=== PATIENT | female | born 1980 | race Caucasian/White ===

== ENCOUNTER 2019-11-29 02:25 | Emergency (ER) | payer BC ==
[~2019-11-29] VITALS: Ht 152.4 cm; Wt 47.2 kg
[2019-11-29 02:25] VITALS: BP 143/94
--- NOTE | 2019-11-29 02:25 | NUR ---
JAYSON PT AMBULATED TO BED #6 FROM [facility]
--- NOTE | 2019-11-29 02:30 | NUR ---
PT SITTING QUIETLY IN BED. 1:[address] BEDRAILS UP. SAFETY MEASURES IN PLACE. WILL CONTINUE TO MONITOR.
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
--- NOTE | 2019-11-29 02:49 | NUR ---
Dr. Laura examining patient.
--- NOTE | 2019-11-29 02:59 | NUR ---
INITIATED TELEPSYCH PER DR. WU
[2019-11-29 03:12] LABS: APPEARANCE,URINE CLEAR (CLEAR); BILIRUBIN,URINE NEGATIVE (NEGATIVE); BLOOD, URINE TRACE-I (NEGATIVE); COLOR,URINE YELLOW (YELLOW); LEUKOCYTE ESTERASE ,URINE NEGATIVE (NEGATIVE); NITRITE, URINE NEGATIVE (NEGATIVE); UGLUCOSE NEGATIVE (NEGATIVE)
[2019-11-29 03:23] LABS: RBC,URINE 0-5 /HPF (0-5); WBC,URINE 0-5 /HPF (0-5)
[2019-11-29 03:24] LABS: BARBITURATE, URINE NEGATIVE ng/ml (NEG <=200); BENZODIAZEPINE, URINE POSITIVE ng/mL (NEG <=200); CANNABINOID, URINE NEGATIVE ng/mL (NEG <=50); COCAINE, URINE NEGATIVE ng/mL (NEG <=300); OPIATE, URINE NEGATIVE ng/mL (NEG <=2000); PHENCYCLIDINE SCREEN,URINE NEGATIVE ng/mL (NEG <=25)
--- NOTE | 2019-11-29 03:49 | NUR ---
TELEPSYCH DOCTOR SPEAKING WITH PATIENT VIA REMOTE COMMUNICATION
--- NOTE | 2019-11-29 03:57 | NUR ---
TELEPSYCH DOCTOR RECCOMMENDING TO UPHOLD 51/50 AND ONE TIME DOSE HYDROXYZINE 50 MG. JEREMIE WU MADE AWARE OF RECCOMENDATIONS.
[2019-11-29] MEDS ORDERED: HYDROXYZINE HYDROCHLORIDE 25 MG TAB PO STA (04:20)
--- NOTE | 2019-11-29 04:29 | NUR ---
PT REFUSED HYDROXYIZINE MEDICATION. STATES "I'M NOT MENTALLY ILL" AND "I ALMOST OVERDOSED ON DEPAKOTE TONIGHT, IM NOT TAKING IT." PT UNABLE TO SPECIFY THE AMOUNT OF DEPAKOTE TAKEN. Addendum: 11/29/19 at 0432 by [email or web address] JEREMIE ZEPEDA
--- NOTE | 2019-11-29 05:25 | NUR ---
PT IN BED, EYES CLOSED. VSS. 1:1 MONITORING. RESPIRATIONS EVEN AND UNLABORED. CHEST RISE IS SYMMETRICAL. WILL CONTINUE TO MONITOR.
--- NOTE | 2019-11-29 06:30 | NUR ---
COVID SWAB DONE AND SENT TO LAB.
[2019-11-29 06:33] LABS: BASOPHILS # (AUTO) 0.2 K/uL (0.00-0.22); BASOPHILS % (AUTO) 1.3 % (0.0-2.0); EOSINOPHILS # (AUTO) 1.5 K/uL (0-0.4); EOSINOPHILS % (AUTO) 9.2 % (0.0-4.0); HEMATOCRIT 32.1 % (36-48); HEMOGLOBIN 10.3 g/dL (12.0-16.0); LYMPHOCYTES # (AUTO) 3.7 K/uL (2.5-16.5); MEAN CORPUSCULAR HEMOGLOBIN 26 pg (27-31); MEAN CORPUSCULAR HGB CONC 32 g/dL (33-37); MEAN CORPUSCULAR VOLUME 81.4 fL (80-94); MONOCYTES # (AUTO) 1.1 K/uL (0.8-1.0); MONOCYTES % (AUTO) 7.1 % (1.7-9.3); NEUTROPHILS # (AUTO) 9.6 K/uL (1.8-7.7); NEUTROPHILS % (AUTO) 59.4 % (42.2-75.2); PLATELET COUNT (AUTO) 437 K/uL (140-450); RED BLOOD CELL COUNT(AUTO) 3.94 MIL/uL (4.20-5.40); RED CELL DISTRIBUTION WIDTH 18.3 % (11.6-13.7); WHITE BLOOD COUNT (AUTO) 16.1 K/uL (4.8-10.8)
[2019-11-29 06:53] LABS: ALBUMIN 1.4 g/dL (3.4-5.0); ANION GAP 12.2 (8-16); ASPARTATE AMINOTRANSFERASE 23 U/L (15-37); CARBON DIOXIDE 24.1 mmol/L (21-32); CHLORIDE 108 mmol/L (98-107); CREATININE 1.2 mg/dL (0.6-1.3); GFR ARICAN-AMERICAN 65 mL/min (>90); GLUCOSE 87 mg/dL (74-106); POTASSIUM 4.3 mmol/L (3.5-5.1); SODIUM SERUM 140 mmol/L (136-145); UREA NITROGEN, BLOOD 13 mg/dL (7-18)
--- NOTE | 2019-11-29 07:14 | NUR ---
REPORT GIVEN TO KATIE ALICEA FOR CONTINUITY OF CARE.
--- NOTE | 2019-11-29 07:15 | NUR ---
Received report from DEANNE Otoole. Transfer of care at this time
--- NOTE | 2019-11-29 07:27 | NUR ---
Pt given breakfast, states she will eat it when she is not so tired.
--- NOTE | 2019-11-29 08:50 | NUR ---
Resting with eyes closed, visible rise and fall of the chest. Arousable to voice. VSS
--- NOTE | 2019-11-29 10:48 | NUR ---
Resting with eyes closed, arousable to voice. No complaints at this time
--- NOTE | 2019-11-29 12:27 | NUR ---
Pt awake and alert, positioned for comfort. RR even and unlabored, vss
--- NOTE | 2019-11-29 13:20 | NUR ---
PT ASLEEP IN BED. AROUSABLE TO VERBAL STIMULI. SITTER AT BEDSIDE, SAFTEY PRECAUTIONS IN PLACE
--- NOTE | 2019-11-29 13:42 | NUR ---
[facility] aware of patient. Will assist with inpatient psych placement if needed and requested.
[2019-11-29 14:16] VITALS: BP 127/88
--- NOTE | 2019-11-29 14:18 | NUR ---
Patient discharged with v/s stable. Written and verbal after care instructions given and explained. Patient verbalized understanding. Ambulatory with steady gait. All questions addressed prior to discharge. Advised to follow up with PMD.
== END 2019-11-29 14:18 | disposition home or self-care (01) ==
LOC: MED 02:25
DX: F29 Unspecified psychosis not due to a substance or known physiological condition (principal); Z73.6 Limitation of activities due to disability
CPT/HCPCS: 80053; 80305; 81001; 81025; 85025; 99285; G0482; U0003